=== PATIENT | female | born 1985 | race African-American/Black ===

== ENCOUNTER 2016-11-08 12:43 | Inpatient (IN) | payer OTHER ==
[~2016-11-08] VITALS: Ht 154.9 cm; Wt 57.2 kg
[~2016-11-08 12:43] MED LIST: NOHOMEMEDICATIONS; TIZANIDINE HCL4 MG PO; TOBRADEX ST EYE5 ML OP
[2016-11-08 12:53] VITALS: BP 174/119
[2016-11-08] MEDS ORDERED: LEVOTHYROXINE0.2 M1 PO (12:57)
[2016-11-08 13:17] LABS: URINE BILIRUBIN NEGATIVE (Negative); URINE BLOOD 3+ (Negative); URINE COLOR RED; URINE GLUCOSE-RANDOM* NEGATIVE (Negative); URINE KETONES 1+ (Negative); URINE NITRITE POSITIVE (Negative); URINE PROTEIN (DIPSTICK) 3+ (Negative)
[2016-11-08 13:42] LABS: SQUAMOUS 0-3 Few /LPF (0-3); URINE RBC >20 Many /HPF (0-2); URINE WBC 6-15 Few /HPF (0-5)
[2016-11-08 13:43] LABS: CASTS None Seen /LPF (None Seen); CRYSTALS None Seen /LPF (None Seen)
[2016-11-08 13:44] LABS: ABSOLUTE NEUTROPHILS 8.1 thou/uL (1.4-8.2); BASOPHILS 0.6 % (0.0-2.0); EOSINOPHILS 2.1 % (0.0-3.0); HEMATOCRIT 38.6 % (37.0-47.0); HEMOGLOBIN 13.3 gm/dL (12.0-15.0); LYMPHOCYTES 15.1 % (24.0-44.0); MCH 30.7 pg (26.0-34.0); MCHC 34.5 g/dL (28.0-37.0); MCV 88.8 fL (80.0-100.0); MONOCYTES 11.5 % (1.0-8.0); PLATELET COUNT 210 thou/uL (150-400); POLYS 70.7 % (36.0-66.0); RBC 4.34 mil/uL (4.20-5.00); RDW 12.5 % (10.5-14.5); WBC 11.5 thou/uL (4.0-11.0)
[2016-11-08 13:45] LABS: MANUAL DIFF NO
[2016-11-08 13:54] LABS: CALCIUM 9.2 mg/dL (8.5-10.1); CREATININE 0.8 mg/dL (0.6-1.0); POTASSIUM 3.3 mmol/L (3.5-5.1)
[2016-11-08 16:10] VITALS: BP 154/104
[2016-11-08 17:03] VITALS: BP 151/115
[2016-11-08 20:30] VITALS: BP 156/110
[2016-11-09] VITALS (7 sets, daily range): BP systolic 143–182; BP diastolic 94–120
[2016-11-09 06:43] LABS: BASOPHILS 0.8 % (0.0-2.0); EOSINOPHILS 2.7 % (0.0-3.0); HEMATOCRIT 37.9 % (37.0-47.0); LYMPHOCYTES 21.4 % (24.0-44.0); MCH 30.5 pg (26.0-34.0); MCHC 34.4 g/dL (28.0-37.0); MCV 88.9 fL (80.0-100.0); MONOCYTES 11.9 % (1.0-8.0); PLATELET COUNT 211 thou/uL (150-400); POLYS 63.2 % (36.0-66.0); RBC 4.27 mil/uL (4.20-5.00); RDW 12.8 % (10.5-14.5); WBC 9.4 thou/uL (4.0-11.0)
[2016-11-09 06:44] LABS: MANUAL DIFF NO
[2016-11-09 06:58] LABS: ALBUMIN 3.2 g/dL (3.4-5.0); CALCIUM 8.8 mg/dL (8.5-10.1); CREATININE 0.8 mg/dL (0.6-1.0); POTASSIUM 3.7 mmol/L (3.5-5.1); TOTAL BILIRUBIN 0.4 mg/dL (<0.1-1.0)
[2016-11-10 00:14] VITALS: BP 136/95
[2016-11-10 04:33] VITALS: BP 135/96
[2016-11-10 05:50] LABS: ABSOLUTE NEUTROPHILS 8.3 thou/uL (1.4-8.2); BASOPHILS 0.6 % (0.0-2.0); EOSINOPHILS 1.5 % (0.0-3.0); HEMATOCRIT 39.2 % (37.0-47.0); HEMOGLOBIN 13.2 gm/dL (12.0-15.0); LYMPHOCYTES 17.2 % (24.0-44.0); MCH 30.2 pg (26.0-34.0); MCHC 33.7 g/dL (28.0-37.0); MCV 89.7 fL (80.0-100.0); MONOCYTES 10.5 % (1.0-8.0); POLYS 70.2 % (36.0-66.0); RBC 4.37 mil/uL (4.20-5.00); RDW 13.1 % (10.5-14.5); WBC 11.9 thou/uL (4.0-11.0)
[2016-11-10 05:55] LABS: MANUAL DIFF NO
[2016-11-10 06:02] LABS: CALCIUM 8.8 mg/dL (8.5-10.1); POTASSIUM 3.7 mmol/L (3.5-5.1)
[2016-11-10 08:02] VITALS: BP 150/105
[2016-11-10 08:18] LABS: PLATELET COUNT 185 thou/uL (150-400)
[2016-11-10] MEDS ORDERED: KEFLEX500 MG PO (09:29)
[2016-11-10] MEDS ORDERED: FOSINOPRIL SODI20 MG PO (09:29)
[2016-11-10] MEDS ORDERED: PHENAZOPYRIDIN200 M2 PO (09:29)
[2016-11-10] MEDS ORDERED: LEVOTHYROXINE0.2 M1 PO (09:30)
[2016-11-10 09:53] VITALS: BP 150/105
== END 2016-11-10 10:59 | disposition home or self-care (01) | DRG 690 ==
LOC: ER 12:43 → 4E 15:07 → EROBS 15:07 → 4E 16:49
PROVIDERS: Family Medicine; Nurse Practitioner
DX: N12 Tubulo-interstitial nephritis, not specified as acute or chronic (principal); I10 Essential (primary) hypertension; Z79.899 Other long term (current) drug therapy
CPT/HCPCS: 10084

== ENCOUNTER 2017-04-15 07:34 | Emergency (ER) | payer OTHER ==
[~2017-04-15] VITALS: Ht 154.9 cm; Wt 60.8 kg
[~2017-04-15 07:34] MED LIST changes: +FOSINOPRIL SODI20 MG PO; +KEFLEX500 MG PO; +LEVOTHYROXINE0.2 M1 PO; +PHENAZOPYRIDIN200 M2 PO
[2017-04-15 08:24] LABS: ABSOLUTE NEUTROPHILS 7.7 thou/uL (1.4-8.2); BASOPHILS 0.7 % (0.0-2.0); EOSINOPHILS 0.5 % (0.0-3.0); HEMATOCRIT 40.8 % (37.0-47.0); HEMOGLOBIN 13.9 gm/dL (12.0-15.0); LYMPHOCYTES 14.6 % (24.0-44.0); MCH 29.2 pg (26.0-34.0); MCHC 34.2 g/dL (28.0-37.0); MCV 85.4 fL (80.0-100.0); PLATELET COUNT 255 thou/uL (150-400); POLYS 79.2 % (36.0-66.0); RBC 4.78 mil/uL (4.20-5.00); RDW 11.8 % (10.5-14.5); WBC 9.7 thou/uL (4.0-11.0)
[2017-04-15 08:26] LABS: URINE BILIRUBIN NEGATIVE (Negative); URINE BLOOD 2+ (Negative); URINE COLOR YELLOW; URINE GLUCOSE-RANDOM* NEGATIVE (Negative); URINE KETONES NEGATIVE (Negative); URINE LEUKOCYTES-REFLEX NEGATIVE (Negative); URINE PROTEIN (DIPSTICK) 1+ (Negative); URINE SPECIFIC GRAVITY 1.025 (1.003-1.035)
[2017-04-15 08:29] LABS: MANUAL DIFF NO
[2017-04-15 08:32] LABS: CALCIUM 8.7 mg/dL (8.5-10.1); POTASSIUM 3.4 mmol/L (3.5-5.1)
[2017-04-15 08:36] LABS: CASTS None Seen /LPF (None Seen); CRYSTALS None Seen /LPF (None Seen); SQUAMOUS 0-3 Few /LPF (0-3); URINE RBC 3-10 Few /HPF (0-2); URINE WBC-REFLEX 0-5 Rare /HPF (0-5)
[2017-04-15 08:38] LABS: ALBUMIN 4.2 g/dL (3.4-5.0); TOTAL BILIRUBIN 0.4 mg/dL (<0.1-1.0); TOTAL PROTEIN 8.7 g/dL (6.4-8.2)
[2017-04-15] MEDS ORDERED: CLONIDINE0.1 PO (10:44)
[2017-04-15] MEDS ORDERED: ZOFRAN ODT8 MG PO (10:44)
[2017-04-15] MEDS ORDERED: ACETAMINOPHEN-1 EAC1 PO (10:44)
[2017-04-16] MEDS ORDERED: CARAFATE 1 GM TA1 G1 PO (02:58)
[2017-04-16] MEDS ORDERED: PRILOSEC OTC20 MG PO (02:58)
== END 2017-04-15 11:01 | disposition home or self-care (01) ==
LOC: ER 07:34
PROVIDERS: Emergency Medicine
DX: R10.9 Unspecified abdominal pain (principal); R11.2 Nausea with vomiting, unspecified; E03.9 Hypothyroidism, unspecified; A59.9 Trichomoniasis, unspecified; I10 Essential (primary) hypertension

== ENCOUNTER 2017-04-15 22:52 | Emergency (ER) | payer OTHER ==
[~2017-04-15] VITALS: Ht 154.9 cm; Wt 59.4 kg
[~2017-04-15 22:52] MED LIST changes: +ACETAMINOPHEN-1 EAC1 PO; +CLONIDINE0.1 PO; +ZOFRAN ODT8 MG PO
[2017-04-15 23:31] LABS: EOSINOPHILS 1.1 % (0.0-3.0); HEMATOCRIT 40.1 % (37.0-47.0); LYMPHOCYTES 14.7 % (24.0-44.0); MCH 29.3 pg (26.0-34.0); MCV 83.7 fL (80.0-100.0); PLATELET COUNT 264 thou/uL (150-400); POLYS 75.2 % (36.0-66.0); RBC 4.79 mil/uL (4.20-5.00); RDW 12.2 % (10.5-14.5); WBC 10.7 thou/uL (4.0-11.0)
[2017-04-15 23:39] LABS: MANUAL DIFF NO
[2017-04-15 23:46] LABS: CALCIUM 9.3 mg/dL (8.5-10.1); CREATININE 1.2 mg/dL (0.6-1.0); POTASSIUM 3.1 mmol/L (3.5-5.1)
[2017-04-15 23:51] LABS: ALBUMIN 4.4 g/dL (3.4-5.0); TOTAL BILIRUBIN 0.6 mg/dL (<0.1-1.0); TOTAL PROTEIN 9.1 g/dL (6.4-8.2)
[2017-04-16 00:42] LABS: LARGE PLATELETS OCCASIONAL
[2017-04-16] MEDS ORDERED: PRILOSEC OTC20 MG PO (02:58)
[2017-04-16] MEDS ORDERED: CARAFATE 1 GM TA1 G1 PO (02:58)
== END 2017-04-16 03:05 | disposition home or self-care (01) ==
LOC: ER 22:52
PROVIDERS: Emergency Medicine
DX: R10.13 Epigastric pain (principal); I10 Essential (primary) hypertension; E03.9 Hypothyroidism, unspecified; F10.99 Alcohol use, unspecified with unspecified alcohol-induced disorder

== ENCOUNTER 2017-08-28 13:11 | Emergency (ER) | payer OTHER ==
[~2017-08-28] VITALS: Ht 154.9 cm; Wt 61.7 kg
[~2017-08-28 13:11] MED LIST changes: +CARAFATE 1 GM TA1 G1 PO; +PRILOSEC OTC20 MG PO
[2017-08-28] MEDS ORDERED: LEVOTHYROXINE25 MCG PO (13:25)
[2017-08-28] MEDS ORDERED: COLACE100 MG PO (13:51)
[2017-08-28] MEDS ORDERED: CITRATE OF MAG296 ML PO (13:51)
== END 2017-08-28 14:14 | disposition home or self-care (01) ==
LOC: ER 13:11
DX: K59.00 Constipation, unspecified (principal); I10 Essential (primary) hypertension; E03.9 Hypothyroidism, unspecified

== ENCOUNTER 2017-08-30 04:25 | Emergency (ER) | payer OTHER ==
[~2017-08-30] VITALS: Ht 154.9 cm; Wt 61.2 kg
[~2017-08-30 04:25] MED LIST changes: +CITRATE OF MAG296 ML PO; +COLACE100 MG PO; +LEVOTHYROXINE25 MCG PO
[2017-08-30 05:10] LABS: ABSOLUTE NEUTROPHILS 6.2 thou/uL (1.4-8.2); BASOPHILS 0.7 % (0.0-2.0); EOSINOPHILS 1.1 % (0.0-3.0); HEMATOCRIT 36.4 % (37.0-47.0); HEMOGLOBIN 12.8 gm/dL (12.0-15.0); LYMPHOCYTES 15.2 % (24.0-44.0); MCHC 35.2 g/dL (28.0-37.0); MCV 85.4 fL (80.0-100.0); MONOCYTES 8.5 % (1.0-8.0); PLATELET COUNT 200 thou/uL (150-400); POLYS 74.5 % (36.0-66.0); RBC 4.26 mil/uL (4.20-5.00); RDW 13.5 % (10.5-14.5); WBC 8.4 thou/uL (4.0-11.0)
[2017-08-30 05:12] LABS: CALCIUM 9.4 mg/dL (8.5-10.1)
[2017-08-30 05:12] LABS: URINE BILIRUBIN NEGATIVE (Negative); URINE BLOOD 2+ (Negative); URINE CLARITY CLEAR; URINE COLOR YELLOW; URINE GLUCOSE-RANDOM* NEGATIVE (Negative); URINE KETONES NEGATIVE (Negative); URINE LEUKOCYTES-REFLEX NEGATIVE (Negative); URINE NITRITE-REFLEX NEGATIVE (Negative); URINE PROTEIN (DIPSTICK) 2+ (Negative); URINE UROBILINOGEN 0.2 E.U./dl (0.2-1.0)
[2017-08-30 05:15] LABS: POTASSIUM 2.9 mmol/L (3.5-5.1)
[2017-08-30] MEDS ORDERED: NORVASC5 MG PO (05:19)
[2017-08-30 05:34] LABS: BACTERIA-REFLEX 1-9 Few /HPF (None Seen); CRYSTALS None Seen /LPF (None Seen); FINE GRANULAR CASTS 0-3 Few /LPF (None Seen); MUCUS 0-3 Light strn/LPF (None Seen); SQUAMOUS 0-3 Few /LPF (0-3); URINE RBC 3-10 Few /HPF (0-2); URINE WBC-REFLEX 0-5 Rare /HPF (0-5)
[2017-08-30] MEDS ORDERED: POTASSIUM20 PO (07:53)
[2017-08-30] MEDS ORDERED: CLONIDINE0.1 PO (07:53)
[2017-08-30] MEDS ORDERED: TRAMADOL 50 MG50 MG PO (07:53)
== END 2017-08-30 08:11 | disposition home or self-care (01) ==
LOC: ER 04:25
PROVIDERS: Emergency Medicine
DX: R19.7 Diarrhea, unspecified (principal); I10 Essential (primary) hypertension; E03.9 Hypothyroidism, unspecified; R31.9 Hematuria, unspecified; E87.6 Hypokalemia